=== PATIENT | female | born 2000 | race American Indian/Alaskan Native ===

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

== ENCOUNTER 2021-07-04 07:57 | Emergency (ER) | payer MEDICAID ==
[2021-07-04] MEDS ORDERED: IBUPROFEN 600 MG TAB PO ONE (09:59)
[2021-07-04] MEDS ORDERED: HYDROcodone/ACETAMINOPHEN 5-325 MG TAB PO ONE (09:59)
[2021-07-04] MEDS ORDERED: LIDOCAINE 1%/EPINEPHRINE 1:100,000 VIAL (20 ML) INFILTRATI SCH (10:00)
--- NOTE | 2021-07-04 10:00 | Emergency Department Report ---
- General Chief complaint: Skin/Abscess/Foreign Body Stated complaint: VAGINAL PAIN Time Seen by Provider: 07/04/21 09:18 Source: patient Mode of arrival: Ambulatory Limitations: No Limitations - History of Present Illness Initial comments: 20-year-old female presents to the ER today with complaint of a swollen and painful area to her left vaginal area. Patient states that started small, 4 days ago but since bigger and more painful. She denies any drainage from the area. She states that she is never had this before in the past. She denies any fever or chills. She reports no additional symptoms at this time. complaint: abscess/boil -: Gradual - Related Data Previous Rx's Medication Instructions Recorded Last Taken Type Naproxen [Naprosyn] 500 mg PO BID #14 tablet 07/12/19 Unknown Rx Acetaminophen/Codeine [Tylenol 1 tab PO Q6H PRN #12 tab 07/04/21 Unknown Rx /Codeine # 3 tab] Ibuprofen [Motrin] 600 mg PO Q8H PRN #30 tablet 07/04/21 Unknown Rx Sulfamethoxazole/Trimethoprim 1 each PO BID #14 tablet 07/04/21 Unknown Rx [Bactrim DS TAB] Allergies Allergy/AdvReac Type Severity Reaction Status Date / Time No Known Allergies Allergy Verified 07/04/21 08:13 Abscess Boil HPI - HPI Chief Complaint: Skin/Abscess/Foreign Body Stated Complaint: VAGINAL PAIN Time Seen by Provider: 07/04/21 09:18 Home Medications: Previous Rx's Medication Instructions Recorded Last Taken Type Naproxen [Naprosyn] 500 mg PO BID #14 tablet 07/12/19 Unknown Rx Acetaminophen/Codeine [Tylenol 1 tab PO Q6H PRN #12 tab 07/04/21 Unknown Rx /Codeine # 3 tab] Ibuprofen [Motrin] 600 mg PO Q8H PRN #30 tablet 07/04/21 Unknown Rx Sulfamethoxazole/Trimethoprim 1 each PO BID #14 tablet 07/04/21 Unknown Rx [Bactrim DS TAB] Allergies/Adverse Reactions: Allergies Allergy/AdvReac Type Severity Reaction Status Date / Time No Known Allergies Allergy Verified 07/04/21 08:13 ED Review of Systems ROS: Stated complaint: VAGINAL PAIN Other details as noted in HPI Comment: All other systems reviewed and negative Constitutional: denies: chills, fever Eyes: denies: eye pain, eye discharge, vision change ENT: denies: ear pain, throat pain, dental pain, hearing loss, epistaxis, congestion Respiratory: denies: cough, shortness of breath, SOB with exertion, SOB at rest, wheezing Gastrointestinal: denies: abdominal pain, nausea, vomiting, diarrhea, constipation, hematemesis, melena, hematochezia Genitourinary: denies: urgency, dysuria, frequency, hematuria, discharge, abnormal menses, dyspareunia Musculoskeletal: denies: back pain, joint swelling, arthralgia Skin: denies: rash, lesions, change in color, change in hair/nails, pruritus Neurological: denies: headache, weakness, numbness, paresthesias, confusion, abnormal gait, vertigo Psychiatric: denies: anxiety, depression, auditory hallucinations, visual hallucinations, homicidal thoughts, suicidal thoughts Hematological/Lymphatic: denies: easy bleeding, easy bruising, swollen glands ED Past Medical Hx - Past Medical History Previous Medical History?: No - Surgical History Past Surgical History?: No - Medications Home Medications: Home Medications Medication Instructions Recorded Confirmed Last Taken Type Naproxen [Naprosyn] 500 mg PO BID #14 tablet 07/12/19 Unknown Rx Acetaminophen/Codeine [Tylenol 1 tab PO Q6H PRN #12 tab 07/04/21 Unknown Rx /Codeine # 3 tab] Ibuprofen [Motrin] 600 mg PO Q8H PRN #30 tablet 07/04/21 Unknown Rx Sulfamethoxazole/Trimethoprim 1 each PO BID #14 tablet 07/04/21 Unknown Rx [Bactrim DS TAB] ED Physical Exam - General Limitations: No Limitations General appearance: alert, in no apparent distress - Head Head exam: Present: atraumatic, normocephalic, normal inspection - Eye Eye exam: Present: normal appearance, PERRL, EOMI Pupils: Present: normal accommodation - Respiratory Respiratory exam: Present: normal lung sounds bilaterally. Absent: respiratory distress, wheezes, rales, rhonchi - Cardiovascular Cardiovascular Exam: Present: regular rate - Neurological Exam Neurological exam: Present: alert, oriented X3 - Psychiatric Psychiatric exam: Present: normal affect, normal mood - Skin Skin exam: Present: other (Bartholin's abscess noted to the left vaginal area. No apparent drainage. Severe tenderness to palpation. No associated cellulitis.) ED Course Vital Signs 07/04/21 07/04/21 07/04/21 08:14 08:30 10:21 Temperature 97.6 F Pulse Rate 97 H Respiratory 16 18 Rate Blood Pressure 117/70 O2 Sat by Pulse 100 100 Oximetry 07/04/21 10:22 Temperature Pulse Rate Respiratory 18 Rate Blood Pressure O2 Sat by Pulse Oximetry - I & D Left Vagina Type of Procedure: Complex Site: left bartholins area Blade Size: 11 I & D Procedure: betadine prep Progress: Lidocaine 1% with Epi used. Large amount of pus drained Words catheter placed Patient tolerated procedure well without any complications Critical care attestation.: If time is entered above; I have spent that time in minutes in the direct care of this critically ill patient, excluding procedure time. ED Disposition Clinical Impression: Bartholin's gland abscess Disposition: HOME / SELF CARE / HOMELESS Is pt being admited?: No Does the pt Need Aspirin: No Condition: Stable Instructions: Skin Abscess, [id number], Bartholin's Cyst, [id number] Additional Instructions: Return to ED in 2 days for words catheter removal. If it falls off on its own that is okay but do not remove it on your own. Take the antibiotic and the pain medication as prescribed. I do recommend that you follow-up with your RESPIRATORY MANAGER at [facility] in 1 week. Return sooner if the area seems to be getting worse. Prescriptions: Sulfamethoxazole/Trimethoprim [Bactrim DS TAB] 1 each PO BID #14 tablet Ibuprofen [Motrin] 600 mg PO Q8H PRN #30 tablet PRN Reason: Pain Acetaminophen/Codeine [Tylenol /Codeine # 3 tab] 1 tab PO Q6H PRN #12 tab PRN Reason: Pain Referrals: PRIMARY CARE, [Primary Care Provider] - 3-5 Days Forms: Work/School Release Form(ED) Time of Disposition: 11:17
[2021-07-04 12:28] VITALS: BP 135/75
== END 2021-07-04 12:28 | disposition home or self-care (01) ==
LOC: ED 07:57
DX: N75.1 Abscess of Bartholin's gland (principal)
CPT/HCPCS: 99282

== ENCOUNTER 2021-07-06 08:20 | Emergency (ER) | payer MEDICAID ==
[2021-07-06 08:40] VITALS: BP 111/59
--- NOTE | 2021-07-06 08:44 | Emergency Department Report ---
Suture/Staple Removal - HPI Chief Complaint: Recheck/Abnormal Lab/Rx Stated Complaint: TOLD TO COME BACK TO REMOVE CATH Time Seen by Provider: 07/06/21 08:26 When Sutures or [place] Placed: 2 days Wound Location: labia ED Review of Systems ROS: Stated complaint: TOLD TO COME BACK TO REMOVE CATH Other details as noted in HPI Comment: All other systems reviewed and negative Constitutional: denies: chills, fever Eyes: denies: eye pain, eye discharge, vision change ENT: denies: ear pain, throat pain Respiratory: denies: cough, shortness of breath, wheezing Cardiovascular: denies: chest pain, palpitations Endocrine: no symptoms reported Gastrointestinal: denies: abdominal pain, nausea, diarrhea Genitourinary: denies: urgency, dysuria, discharge Musculoskeletal: denies: back pain, joint swelling, arthralgia Skin: denies: rash, lesions Neurological: denies: headache, weakness, paresthesias Psychiatric: denies: anxiety, depression Hematological/Lymphatic: denies: easy bleeding, easy bruising ED Past Medical Hx - Medications Home Medications: Home Medications Medication Instructions Recorded Confirmed Last Taken Type Naproxen [Naprosyn] 500 mg PO BID #14 tablet 07/12/19 Unknown Rx Acetaminophen/Codeine [Tylenol 1 tab PO Q6H PRN #12 tab 07/04/21 Unknown Rx /Codeine # 3 tab] Ibuprofen [Motrin] 600 mg PO Q8H PRN #30 tablet 07/04/21 Unknown Rx Sulfamethoxazole/Trimethoprim 1 each PO BID #14 tablet 07/04/21 Unknown Rx [Bactrim DS TAB] Suture Removal Exam - Exam General: Vital signs noted. No distress. Alert and acting appropriately. Wound: No Pathologic Erythema, No Tenderness, No Drainage, No Pus, No Wound Dehiscence Other Systems: All other systems reviewed and are unremarkable. [employer] present during exam and removal of the Bond catheter. ED Course Vital Signs 07/06/21 08:25 Temperature 98.0 F Pulse Rate 80 Respiratory 18 Rate Blood Pressure 111/59 O2 Sat by Pulse 99 Oximetry - Reevaluation(s) Reevaluation #1: 07/06/21 08:43 Patient is speaking in full sentences with no signs of distress noted. ED Recheck MDM - Medical Decision Making This is a 20-year-old female that presents with suture removal. She is stable and was examined by me. Bond catheter has been successfully removed using a 10 cc syringe to aspirate the fluid in the balloon and remove the catheter. No signs of wound dehiscence, drainage, or cellulitis. Patient was referred to Follow-up with a primary care doctor in 3-5 days or if symptoms worsen and continue return to emergency room as soon as possible. At time of discharge, the patient does not seem toxic or ill in appearance. No acute signs of distress noted. Patient agrees to discharge treatment plan of care. No further questions noted by the patient. Critical care attestation.: If time is entered above; I have spent that time in minutes in the direct care of this critically ill patient, excluding procedure time. ED Disposition Clinical Impression: Encounter for abscess packing removal Disposition: 01 HOME / SELF CARE / HOMELESS Is pt being admited?: No Does the pt Need Aspirin: No Condition: Stable Additional Instructions: Follow-up with a primary care doctor in 3-5 days or if symptoms worsen and continue return to emergency room as soon as possible. Continue taking antibiotics as prescribed to you during your previous visit. Referrals: KEI MICHAEL MD [Referring] - 3-5 Days ROBBIE MARQUEZ MD [Staff Physician] - 3-5 Days Time of Disposition: 08:44
== END 2021-07-06 09:15 | disposition home or self-care (01) ==
LOC: ED 08:20
DX: Z46.82 Encounter for fitting and adjustment of non-vascular catheter (principal); Z48.00 Encounter for change or removal of nonsurgical wound dressing
CPT/HCPCS: 99282

== ENCOUNTER 2022-04-10 21:26 | Emergency (ER) | payer MEDICAID ==
[2022-04-11] MEDS ORDERED: predniSONE 20 MG TAB PO ONE (04:40)
[2022-04-11] MEDS ORDERED: ACETAMINOPHEN 500 MG TAB PO ONE (04:40)
[2022-04-11] MEDS ORDERED: METOCLOPRAMIDE 10 MG TAB PO ONE (04:40)
[2022-04-11] MEDS ORDERED: diphenhydrAMINE 25 MG CAP PO ONE (04:40)
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
[2022-04-11 06:09] VITALS: BP 112/63
== END 2022-04-11 06:45 | disposition home or self-care (01) ==
LOC: ED 21:26
DX: S09.90XA Unspecified injury of head, initial encounter (principal); R51.9 Headache, unspecified; X58.XXXA Exposure to other specified factors, initial encounter; Y93.89 Activity, other specified; Y92.89 Other specified places as the place of occurrence of the external cause; Y99.8 Other external cause status
CPT/HCPCS: 99282